=== PATIENT | male | born 1970 | race Caucasian/White ===

== ENCOUNTER 2025-01-13 12:51 | Emergency (ER) | payer OTHER, SELFPAY ==
[2025-01-13 12:52] VITALS: BP 171/95; PULSE 86; RESP 18; TEMP 36.5; O2SAT 99
--- OUTSIDE RECORDS SUMMARY | 2025-01-13 13:47 | XMS_ITS | Data Portability ---
Author Organization [facility]EL[facility] Address [address] [place] [address] Assessment No assessment recorded. Plan of Treatment Reminders Order Date Submit Date Provider Last Modified By Organization Details Last Modified Time Details Appointments None recorded. Lab PSA, total, serum or plasma 2017 019 [facility], [address], [address], [place], [address], 9 03:10:05 HbA1c (hemoglobi n A1c), blood 2017 019 [facility], [address] [facility] [address], [place], [address], 9 03:10:06 thyroid panel, serum 2017 018 [facility], [address] [facility] [address], [address], [place], [address], 8 09:19:35 HbA1c (hemoglobi n A1c), blood 2017 018 [facility], [address] [facility] [address], [address], [place], [address], 8 13:11:50 lipid panel, serum 2017 018 [facility], [address] [facility] [address], [address], [place], [address], 8 13:11:50 influenza virus (A+B) Ag, rapid, nose 2017 018 [facility] ([facility]), [address], [place], [address], 8 14:48:53 CBC 2017 018 [facility], [address] [facility] [address], [place], [address], 8 17:11:21 urinalysis , complete 2017 018 [facility], [address] [place] [address] [address], [address], [place], [address], 8 17:11:22 rapid strep group A, throat 2017 018 [facility] In-Office Order, Internal Use Only DO Not Attach Compendium DO Not Attach Compendium, Do Not Delete/merge, [address] 8 12:13:44 culture, respirator y 2017 018 [facility], [address] [facility] [address], [place], [address], 8 17:08:09 HbA1c (hemoglobi n A1c), blood 2017 018 [facility], [address] [facility] [address], [place], [address], 8 17:11:24 lipid panel, serum 2017 018 [facility], [address], [place], [address], 8 17:11:23 BMP, serum or plasma 2017 018 [facility], [address], [place], [address], 8 17:11:23 HbA1c (hemoglobi n A1c), blood 2016 018 [facility], [address], [address], [place], [address], 8 06:17:37 lipid panel, serum 2016 018 [facility], [address], [address], [place], [address], 8 06:17:35 BMP, serum or plasma 2016 018 [facility], [address], [address], [place], [address], 8 06:17:36 uric acid, serum or plasma 2016 017 [facility], [address], [address], [place], [address], 7 13:10:24 microalbum in, urine 2016 017 [facility], [address], [address], [place], [address], 7 13:10:23 lipid panel, serum 2016 017 [facility], [address], [address], [place], [address], 7 13:10:23 ALT (alanine aminotrans ferase), serum or plasma 2016 017 [facility], [address], [address], [place], [address], 7 13:10:25 AST/SGOT (aspartate aminotrans ferase), serum or plasma 2016 017 [facility], [address] [facility] [address], [place], [address], 7 13:10:24 Referral diabetic ophthalmol ogy referral - Please call patient to schedule appt. Thank you 2016 017 [facility], [address], [place], [address], 7 13:05:22 Procedures None recorded. Surgeries None recorded. Imaging US, liver - Elevtaed Transamina se 2016 017 [facility] ([facility]), [address], [place], [address], 8 14:08:10 Medication Orders metformin ER 500 mg tablet,ext ended release 24 hr 2017 018 [facility] #[id number], [address], [place], [place], [id number], 8 15:54:07 Amaryl 1 mg tablet 2017 018 [facility] #[id number], [address], [place], [place], [id number], 8 15:54:07 atorvastat in 40 mg tablet 2017 018 [facility] #[id number], [address], [place], [place], [id number], 8 15:54:07 metformin ER 500 mg tablet,ext ended release 24 hr 2017 018 [facility] #[id number], [address], [place], [place], [id number], 8 12:21:13 atorvastat in 40 mg tablet 2017 018 [facility] #[id number], [address], [place], [place], [id number], 8 12:21:15 atorvastat in 40 mg tablet 2017 018 [facility] #[id number], [address], [place], [place], [id number], 8 12:18:24 metformin ER 500 mg tablet,ext ended release 24 hr 2017 018 [facility] #[id number], [address], [id number], 8 12:18:28 pseudoephe drine 60 mg tablet 2017 018 [facility] #[id number], [address], [place], [place], [id number], 8 12:14:30 metformin ER 500 mg tablet,ext ended release 24 hr 2016 017 [facility] #[id number], [address], [place], [place], [id number], 7 12:42:05 atorvastat in 40 mg tablet 2016 017 [facility] #[id number], [address], [place], [place], [id number], 7 12:48:59 metformin 1,000 mg tablet 2016 017 [facility] #[id number], [address], [place], [place], [id number], 8 12:08:28 atorvastat in 40 mg tablet 2016 017 [id number], [address], [place], [place], [id number], 7 10:08:43 Patient TargetsNo targets recorded. Patient Instructions Encounter Date Encounter Id Patient Instructions Last Modified By Organization Details Last Modified Time 07/19/2017 [id number] osteoarthritis: care instructions hdoverma Not available 07/19/2017 10:22:31 Patient educatio n materials Labs in 6 weeks Diabetic, low CHO and low saturated fat diet Exercise Weight loss FU in 2 months US Side effects of Metformin and Lipitor were discussed Once a day blood sugar testing oajao Not available 07/19/2017 10:20:41 Detailed discussion of his lab and radiology results oajao Not available 07/19/2017 10:20:01 09/16/2017 [id number] Metformin XR 100 0 mg once a day Labs FOllow up in 4 months oajao Not available 09/16/2017 13:54:08 Lab and xray results were discussed in detail. oajao Not available 09/16/2017 13:54:38 12/23/2017 [id number] A healthy lifestyle: care instructions oajao Not available 12/23/2017 12:13:44 sore throat: car e instructions oajao Not available 12/23/2017 12:13:44 upper respirator y infection (cold): care instructions oajao Not available 12/23/2017 12:13:44 ER if symptoms worsen Labs Pseudophedrine Follow up as scheduled oajao Not available 12/23/2017 20:18:06 the negative rap id Strep and his other lab results were discussed oajao Not available 12/23/2017 20:19:39 04/14/2018 [id number] TSH today Pneumovax was refused Labs in 3-4 months FU in 4-5 months oajao Not available 04/14/2018 12:33:19 Lab results were discussed. A neeed to add on another medication or increase the dose of his Metformin was discussed, he has declined the offer. He is aware that his DM is uncontrolled albeit, better than last year. He had confirmed Influenza on his last visit, I have strongly recommended that he gets his annual Flu shots when it's due. oajao Not available 04/14/2018 12:35:11 10/12/2018 [id number] Labs Colonoscopy Increase Metformin to 2000 mg, side effects were discussed Start Amaryl, side effects were discussed Close follow up in 8 weeks Colonoscopy sohan Not available 10/12/2018 19:19:30 Lab results were discused in detail oanichelleo Not available 10/12/2018 15:58:28 Reason for Referral Diabetic Ophthalmology Refer ral for Uncontrolled type 2 diabetes mellitus Please call patient to schedule appt. Thank you Referring Physician: Nichole Munguia, Internal Medicine, Encounter Date: 07/19/2017 Results Created Date Observation Date Name Description Value Unit Range Abnormal Flag Note LastModifiedBy Organization Detail LastModifiedTime 07/13/20 17 07/14/2017 CBC WBC 7.0 x10e3 /uL 3.4-10 .8 Not Available [facility] ([facility]) [address] [place], [address], 07/14/2017 13:11:04 07/13/2007/14/2017 CBC RBC 5.76 x10e6 /uL 4.14-5 .80 Not Available [facility] ([facility]) [address] [place], [address], 07/14/2017 13:11:04 07/13/2007/14/2017 CBC hemoglobin 17.3 g/dL 12.6-1 7.7 Not Available [facility] ([facility]) [address] [place], [address], 07/14/2017 13:11:04 07/13/2007/14/2017 CBC hematocrit 49.9 % 37.5-5 1.0 Not Available [facility] ([facility]) [address] [place], [address], 07/14/2017 13:11:04 07/13/2007/14/2017 CBC MCV 87 fL 79-97 Not Available [facility] ([facility]) [address] [place], [address], 07/14/2017 13:11:04 07/13/20 17 07/14/2017 CBC MCH 30.0 pg 26.6-3 3.0 Not Available [facility] ([facility]) [address] [place], [address], 07/14/2017 13:11:04 07/13/20 17 07/14/2017 CBC MCHC 34.7 g/dL 31.5-3 5.7 Not Available [facility] ([facility]) [address] [facility], [place], [address], 07/14/2017 13:11:04 07/13/20 17 07/14/2017 CBC RDW 14.1 % 12.3-1 5.4 Not Available [facility] ([facility]) [address] [facility], [place], [address], 07/14/2017 13:11:04 07/13/20 17 07/14/2017 CBC platelets 234 x10e3 /uL 150-37 9 Not Available [facility] ([facility]) [address] [facility], [place], [address], 07/14/2017 13:11:04 07/13/2007/14/2017 CBC neutrophils 49 % Not Avai lable [facility] ([facility]) [address] [place], [address], 07/14/2017 13:11:04 07/13/2007/14/2017 CBC lymphs 41 % Not Available [facility] ([facility]) [address] [place], [address], 07/14/2017 13:11:04 07/13/2007/14/2017 CBC monocytes 7 % Not Availa ble [facility] ([facility]) [address] [place], [address], 07/14/2017 13:11:04 07/13/20 17 07/14/2017 CBC eos 3 % Not Available [facility] ([facility]) [address] [facility], [place], [address], 07/14/2017 13:11:04 07/13/20 17 07/14/2017 CBC basos 0 % Not Available [facility] ([facility]) [address] [facility], [place], [address], 07/14/2017 13:11:04 07/13/2007/14/2017 CBC immature cells SENIOR WEB ARCHITECT Not Available [facility] ([facility]) [address] [facility], [place], [address], 07/14/2017 13:11:04 07/13/2007/14/2017 CBC neutrophils (absolute) 3.4 x10e3 /uL 1.4-7. 0 Not Available [facility] ([facility]) [address] [facility], [place], [address], 07/14/2017 13:11:04 07/13/20 17 07/14/2017 CBC lymphs (absolute) 2.9 x10e3 /uL 0.7-3. 1 Not Available [facility] ([facility]) [address] [facility], [place], [address], 07/14/2017 13:11:04 07/13/20 17 07/14/2017 CBC monocytes(ab solute) 0.5 x10e3 /uL 0.1-0. 9 Not Available [facility] ([facility]) [address] [facility], [place], [address], 07/14/2017 13:11:04 07/13/2007/14/2017 CBC eos (absolute) 0.2 x10e3 /uL 0.0-0. 4 Not Available [facility] ([facility]) [address] [facility], [place], [address], 07/14/2017 13:11:04 07/13/20 17 07/14/2017 CBC baso (absolute) 0.0 x10e3 /uL 0.0-0. 2 Not Available [facility] ([facility]) [address] [facility] [place], [address], 07/14/2017 13:11:04 07/13/2007/14/2017 CBC immature granulocytes 0 % Not Available [facility]) [address] [place], [address], 07/14/2017 13:11:04 07/13/2007/14/2017 CBC immature grans (abs) 0.0 x10e3 /uL 0.0-0. 1 Not Available [facility] ([facility]) [address] [facility] [place], [address], 07/14/2017 13:11:04 07/13/2007/14/2017 CBC NRBC SENIOR WEB ARCHITECT Not Available [facility] ([facility]) [address] [facility] [place], [address], 07/14/2017 13:11:04 07/13/2007/14/2017 CBC hematology comments: SENIOR WEB ARCHITECT Not Available [facility] ([facility]) [address] [facility] [place], [address], 07/14/2017 13:11:04 07/13/2007/14/2017 CMP, serum or plasm a glucose, serum 353 mg/dL 65-99 above high normal Not Available [facility] ([facility]) [address] [facility] [place], [address], 07/14/2017 13:11:05 07/13/2007/14/2017 CMP, serum or plasm a BUN 11 mg/dL 6-24 Not Available [facility] ([facility]) [address] [facility] [place], [address], 07/14/2017 13:11:05 07/13/2007/14/2017 CMP, serum or plasm a creatinine, serum 0.77 mg/dL 0.76-1 .27 Not Available [facility] ([facility]) [address] [place], [address], 07/14/2017 13:11:05 07/13/20 17 07/14/2017 CMP, serum or plasm a eGFR if nonafricn AM 107 mL/mi n/1.7 3 >59 Not Available [facility] ([facility]) [address] [facility] [place], [address], 07/14/2017 13:11:05 07/13/20 17 07/14/2017 CMP, serum or plasm a eGFR if africn AM 123 mL/mi n/1.7 3 >59 Not Available [facility] ([facility]) [address] [place], [address], 07/14/2017 13:11:05 07/13/20 17 07/14/2017 CMP, serum or plasm a BUN/creatini ne ratio 14 9-20 Not Available [facility] ([facility]) [address] [place], [address], 07/14/2017 13:11:05 07/13/20 17 07/14/2017 CMP, serum or plasm a sodium, serum 141 mmol/ L 134-14 4 Not Available [facility] ([facility]) [address] [place] [address], [address], 07/14/2017 13:11:05 07/13/20 17 07/14/2017 CMP, serum or plasm a potassium, serum 4.5 mmol/ L 3.5-5. 2 Not Available [facility] ([facility]) [address] [place], [address], 07/14/2017 13:11:05 07/13/20 17 07/14/2017 CMP, serum or plasm a chloride, serum 95 mmol/ L 96-106 below low normal Not Available [facility] ([facility]) [address] [place], [address], 07/14/2017 13:11:05 07/13/20 17 07/14/2017 CMP, serum or plasm a carbon dioxide, total 23 mmol/ L 18-29 Not Available [facility] ([facility]) [address] [facility] [place], [address], 07/14/2017 13:11:05 07/13/2007/14/2017 CMP, serum or plasm a calcium, serum 9.8 mg/dL 8.7-10 .2 Not Available [facility] ([facility]) [address] [facility] [place], [address], 07/14/2017 13:11:05 07/13/2007/14/2017 CMP, serum or plasm a protein, total, serum 7.3 g/dL 6.0-8. 5 Not Available [facility] ([facility]) [address] [place], [address], 07/14/2017 13:11:05 07/13/2007/14/2017 CMP, serum or plasm a albumin, serum 4.3 g/dL 3.5-5. 5 Not Available [facility] ([facility]) [address] [facility] [place], [address], 07/14/2017 13:11:05 07/13/2007/14/2017 CMP, serum or plasm a globulin, total 3.0 g/dL 1.5-4. 5 Not Available [facility] ([facility]) [address] [place], [address], 07/14/2017 13:11:05 07/13/2007/14/2017 CMP, serum or plasm a A/G ratio 1.4 1.2-2. 2 Not Available [facility] ([facility]) [address] [place], [address], 07/14/2017 13:11:05 07/13/2007/14/2017 CMP, serum or plasm a bilirubin, total 0.6 mg/dL 0.0-1. 2 Not Available [facility] ([facility]) [address] [place], [address], 07/14/2017 13:11:05 07/13/20 17 07/14/2017 CMP, serum or plasm a alkaline phosphatase, S 103 IU/L 39-117 Not Available [facility] ([facility]) [address] [facility] [place], [address], 07/14/2017 13:11:05 07/13/2007/14/2017 CMP, serum or plasm a AST (SGOT) 25 IU/L 0-40 Not Available [facility] ([facility]) [address] [facility] [place], [address], 07/14/2017 13:11:05 07/13/2007/14/2017 CMP, serum or plasm a ALT (SGPT) 54 IU/L 0-44 above high normal Not Available [facility] ([facility]) [address] [place], [address], 07/14/2017 13:11:05 07/13/2007/14/2017 urina lysis , compl ete specific gravity >=1.03 0 1.005- 1.030 abnormal Not Available [facility] ([facility]) [address] [place], [address], 07/14/2017 13:11:05 07/13/20 17 07/14/2017 urina lysis , compl ete pH 5.5 5.0-7. 5 Not Available [facility] ([facility]) [address] [place], [address], 07/14/2017 13:11:05 07/13/2007/14/2017 urina lysis , compl ete urine-color YELLOW yellow Not Available [facility] ([facility]) [address] [place], [address], 07/14/2017 13:11:05 07/13/20 17 07/14/2017 urina lysis , compl ete appearance CLEAR clear Not Available [facility] ([facility]) [address] [facility], [place], [address], 07/14/2017 13:11:05 07/13/20 17 07/14/2017 urina lysis , compl ete WBC esterase NEGATI VE negati ve Not Available [facility] ([facility]) [address] [facility], [place], [address], 07/14/2017 13:11:05 07/13/2007/14/2017 urina lysis , compl ete protein NEGATI VE negati ve/tra ce Not Available [facility] ([facility]) [address] [place], [address], 07/14/2017 13:11:05 07/13/2007/14/2017 urina lysis , compl ete glucose 3+ negati ve abnormal Not Available [facility] ([facility]) [address] [place], [address], 07/14/2017 13:11:05 07/13/2007/14/2017 urina lysis , compl ete ketones TRACE negati ve abnormal Not Available [facility] ([facility]) [address] [place], [address], 07/14/2017 13:11:05 07/13/20 17 07/14/2017 urina lysis , compl ete occult blood NEGATI VE negati ve Not Available [facility] ([facility]) [address] [place], [address], 07/14/2017 13:11:05 07/13/2007/14/2017 urina lysis , compl ete bilirubin NEGATI VE negati ve Not Available [facility] ([facility]) [address] [place], [address], 07/14/2017 13:11:05 07/13/20 17 07/14/2017 urina lysis , compl ete urobilinogen ,semi-qn 0.2 mg/dL 0.2-1. 0 Not Available [facility] ([facility]) [address] [facility], [place], [address], 07/14/2017 13:11:05 07/13/20 17 07/14/2017 urina lysis , compl ete nitrite, urine NEGATI VE negati ve Not Available [facility] ([facility]) [address] [place], [address], 07/14/2017 13:11:05 07/13/20 17 07/14/2017 urina lysis , compl ete microscopic examination COMMEN T Micro scopi c not indic ated and not perfo rmed. Not Available [facility] ([facility]) [address] [place], [address], 07/14/2017 13:11:05 07/13/20 17 07/14/2017 lipid panel , serum cholesterol, total 289 mg/dL 100-19 9 above high normal Not Available [facility] ([facility]) [address] [place], [address], 07/14/2017 13:11:05 07/13/2007/14/2017 lipid panel , serum triglyceride s 1546 mg/dL 0-149 alert high Resul ts confi rmed on dilut ion. Not Available [facility] ([facility]) [address] [place], [address], 07/14/2017 13:11:05 07/13/20 17 07/14/2017 lipid panel , serum HDL cholesterol 18 mg/dL >39 below low normal Not Available [facility] ([facility]) [address] [place], [address], 07/14/2017 13:11:05 07/13/2007/14/2017 lipid panel , serum VLDL cholesterol eileen COMMEN T mg/dL 5-40 The calcu latio n for the VLDL mckenna stero l is not valid when trigl yceri de level is >400 mg/dL . Not Available [facility] ([facility]) [address] [place], [address], 07/14/2017 13:11:05 07/13/2007/14/2017 lipid panel , serum LDL cholesterol calc COMMEN T mg/dL 0-99 Trigl yceri de resul t indic ated is too high for an accur ate LDL mckenna stero l estim ation . Not Available [facility] ([facility]) [address] [facility], [place], [address], 07/14/2017 13:11:05 07/13/2007/14/2017 lipid panel , serum comment: SENIOR WEB ARCHITECT Not Available [facility] ([facility]) [address] [facility], [place], [address], 07/14/2017 13:11:05 07/13/2007/14/2017 lipid panel , serum LDL/HDL ratio TNP ratio _unit s Unabl e to calcu late resul t since non-n umeri c resul t obtai andrew for compo nent test. LDL/H DL Ratio Men Women 1/2 Avg.R isk 1.0 1.5 Avg.R isk 3.6 3.2 2X Avg.R isk 6.2 5.0 3X Avg.R isk 8.0 6.1 Not Available [facility] ([facility]) [address] [facility], [place], [address], 07/14/2017 13:11:05 07/13/2007/14/2017 diabe alexx patie nt educa tion pdf image . Not Available [facility] ([facility]) [address] [facility], [place], [address], 07/14/2017 13:11:06 07/13/2007/14/2017 HbA1c (hemo globi n A1c), blood hemoglobin A1C 13.4 % 4.8-5. 6 above high normal Pre-d iabet es: 5.7 - 6.4 Diabe alexx: >6.4 Glyce brett contr ol for adult s with diabe alexx: <7.0 Not Available [facility] ([facility]) [address] [facility], [place], [address], 07/14/2017 13:11:06 07/13/20 17 07/14/2017 rf (rheu matoi d facto r), serum RA latex turbid. <10.0 IU/mL 0.0-13 .9 Not Available [facility] ([facility]) [address] [facility], [place], [address], 07/14/2017 13:11:06 07/13/20 17 07/14/2017 HIV 1+2 AB + HIV 1 p24 Ag, quali tativ e immun oassa y, serum HIV screen 4TH generation wrfx NON REACTI VE non reacti ve Not Available [facility] ([facility]) [address] [facility], [place], [address], 07/14/2017 13:11:06 07/13/20 17 07/13/2017 hepat itis C Ab, signa l-to- cutof f, serum or plasm a comment: COMMEN T Non react jd HCV antib alejandrina scree n is consi stent with no HCV infec tion, unles s recen t infec tion is suspe cted or other evide nce exist s to indic ate HCV infec tion. Not Available [facility] ([facility]) [address] [facility], [place], [address], 07/14/2017 13:11:07 07/13/20 17 07/14/2017 hepat itis C Ab, signa l-to- cutof f, serum or plasm a HCV Ab <0.1 s/co_ ratio 0.0-0. 9 Not Available [facility] ([facility]) [address] [facility], [place], [address], 07/14/2017 13:11:07 07/13/20 17 07/14/2017 uric acid, serum or plasm a uric acid, serum 5.0 mg/dL 3.7-8. 6 Thera blas garvin t for gout patie nts: <6.0 Not Available [facility] ([facility]) [address] [facility], [place], [address], 07/14/2017 13:11:07 08/31/20 17 09/01/2017 lipid panel , serum cholesterol, total 105 mg/dL 100-19 9 Not Available [facility] ([facility]) [address] [facility], [place], [address], 09/01/2017 13:10:23 08/31/20 17 09/01/2017 lipid panel , serum triglyceride s 101 mg/dL 0-149 Not Available [facility] ([facility]) [address] [facility], [place], [address], 09/01/2017 13:10:23 08/31/20 17 09/01/2017 lipid panel , serum HDL cholesterol 32 mg/dL >39 below low normal Not Available [facility] ([facility]) [address] [facility], [place], [address], 09/01/2017 13:10:23 08/31/20 17 09/01/2017 lipid panel , serum VLDL cholesterol eileen 20 mg/dL 5-40 Not Available [facility] ([facility]) [address] [facility], [place], [address], 09/01/2017 13:10:23 08/31/20 17 09/01/2017 lipid panel , serum LDL cholesterol calc 53 mg/dL 0-99 Not Available [facility] ([facility]) [address] [facility], [place], [address], 09/01/2017 13:10:23 08/31/20 17 09/01/2017 lipid panel , serum comment: SENIOR WEB ARCHITECT Not Available [facility] ([facility]) [address] [facility], [place], [address], 09/01/2017 13:10:23 08/31/20 17 09/01/2017 lipid panel , serum LDL/HDL ratio 1.7 ratio _unit s 0.0-3. 6 LDL/H DL Ratio Men Women 1/2 Avg.R isk 1.0 1.5 Avg.R isk 3.6 3.2 2X Avg.R isk 6.2 5.0 3X Avg.R isk 8.0 6.1 Not Available [facility] ([facility]) [address] [place], [address], 09/01/2017 13:10:23 08/31/20 17 09/01/2017 micro album in, urine microalbumin , urine 17.0 ug/mL not estab. Not Available [facility] ([facility]) [address] [place], [address], 09/01/2017 13:10:23 08/31/20 17 09/01/2017 uric acid, serum or plasm a uric acid, serum 4.7 mg/dL 3.7-8. 6 Thera pedilipi c bharathi t for gout patie nts: <6.0 Not Available [facility] ([facility]) [address] [place], [address], 09/01/2017 13:10:24 08/31/20 17 09/01/2017 AST/S GOT (aspa rtate amino trans feras e), serum or plasm a AST (SGOT) 23 IU/L 0-40 Not Available [facility] ([facility]) [address] [place], [address], 09/01/2017 13:10:24 08/31/20 17 09/01/2017 ALT (rina ine amino trans feras e), serum or plasm a ALT (SGPT) 36 IU/L 0-44 Not Available [facility] ([facility]) [address] [place], [address], 09/01/2017 13:10:25 08/31/20 17 09/01/2017 diabe alexx patie nt educa tion pdf image . Not Available [facility] ([facility]) [address] [place], [address], 09/01/2017 13:10:25 12/22/19 18 12/23/2017 lipid panel , serum cholesterol, total 94 mg/dL 100-19 9 below low normal Not Available [facility] ([facility]) [address] [place], [address], 12/23/2017 06:17:35 12/22/19 18 12/23/2017 lipid panel , serum triglyceride s 128 mg/dL 0-149 Not Available [facility] ([facility]) [address] [place], [address], 12/23/2017 06:17:35 12/22/19 18 12/23/2017 lipid panel , serum HDL cholesterol 26 mg/dL >39 below low normal Not Available [facility] ([facility]) [address] [place], [address], 12/23/2017 06:17:35 12/22/19 18 12/23/2017 lipid panel , serum VLDL cholesterol eileen 26 5-40 Not Available [facility] ([facility]) [address] [place], [address], 12/23/2017 06:17:35 12/22/19 18 12/23/2017 lipid panel , serum LDL cholesterol calc 42 0-99 Not Available [facility] ([facility]) [address] [place], [address], 12/23/2017 06:17:35 12/22/19 18 12/23/2017 lipid panel , serum comment: SENIOR WEB ARCHITECT Not Available [facility] ([facility]) [address] [place], [address], 12/23/2017 06:17:35 12/22/19 18 12/23/2017 lipid panel , serum LDL/HDL ratio 1.6 0.0-3. 6 LDL/H DL Ratio Men Women 1/2 Avg.R isk 1.0 1.5 Avg.R isk 3.6 3.2 2X Avg.R isk 6.2 5.0 3X Avg.R isk 8.0 6.1 Not Available [facility] ([facility]) [address] [place] [place], [address], 12/23/2017 06:17:35 12/22/19 18 12/23/2017 BMP, serum or plasm a glucose, serum 136 mg/dL 65-99 above high normal Not Available [facility] ([facility]) [address] [place] [place], [address], 12/23/2017 06:17:36 12/22/19 18 12/23/2017 BMP, serum or plasm a BUN 15 mg/dL 6-24 Not Available [facility] ([facility]) [address] [place] [place], [address], 12/23/2017 06:17:36 12/22/19 18 12/23/2017 BMP, serum or plasm a creatinine, serum 0.81 mg/dL 0.76-1 .27 Not Available [facility] ([facility]) [address] [place] [place], [address], 12/23/2017 06:17:36 12/22/19 18 12/23/2017 BMP, serum or plasm a eGFR if nonafricn AM 104 >59 Not Available [facility] ([facility]) [address] [facility] [place], [address], 12/23/2017 06:17:36 12/22/19 18 12/23/2017 BMP, serum or plasm a eGFR if africn AM 121 >59 Not Available [facility] ([facility]) [address] [facility] [place], [address], 12/23/2017 06:17:36 12/22/19 18 12/23/2017 BMP, serum or plasm a BUN/creatini ne ratio 19 9-20 Not Available [facility] ([facility]) [address] [facility] [place], [address], 12/23/2017 06:17:36 12/22/19 18 12/23/2017 BMP, serum or plasm a sodium, serum 143 mmol/ L 134-14 4 Not Available [facility] ([facility]) [address] [facility] [place], [address], 12/23/2017 06:17:36 12/22/19 18 12/23/2017 BMP, serum or plasm a potassium, serum 4.3 mmol/ L 3.5-5. 2 Not Available [facility] ([facility]) [address] [facility] [place], [address], 12/23/2017 06:17:36 12/22/19 18 12/23/2017 BMP, serum or plasm a chloride, serum 101 mmol/ L 96-106 Not Available [facility] ([facility]) [address] [place], [address], 12/23/2017 06:17:36 12/22/19 18 12/23/2017 BMP, serum or plasm a carbon dioxide, total 25 mmol/ L 18-29 Not Available [facility] ([facility]) [address] [place] [place], [address], 12/23/2017 06:17:36 12/22/19 18 12/23/2017 BMP, serum or plasm a anion gap 17.0 10.0-1 8.0 Not Available [facility] ([facility]) [address] [place], [address], 12/23/2017 06:17:36 12/22/19 18 12/23/2017 HbA1c (hemo globi n A1c), blood hemoglobin A1C 7.6 % 4.8-5. 6 above high normal Pre-d iabet es: 5.7 - 6.4 Diabe alexx: >6.4 Glyce brett contr ol for adult s with diabe alexx: <7.0 Not Available [facility] ([facility]) [address] [place], [address], 12/23/2017 06:17:37 02/21/20 18 12/23/2017 diabe alexx patie nt educa tion pdf image . Not Available [facility] ([facility]) [address] [facility] [place], [address], 12/23/2017 06:17:37 12/23/19 18 12/25/2017 cultu re, respi rator y upper respiratory culture FINAL REPORT Not Available [facility] ([facility]) [address] [place] [place], [address], 12/25/2017 17:08:09 12/23/19 18 12/25/2017 cultu re, respi rator y result 1 COMMEN T Routi ne respi rator y vega Not Available [facility] ([facility]) [address] [facility], [place], [address], 12/25/2017 17:08:09 12/23/19 18 12/23/2017 rapid strep group A, throa t Strep negati ve Not Available In-Office Order Internal Use Only DO Not Attach Compendium DO Not Attach Compendium, Do Not Delete/merge, [id number] 12/23/2017 12:06:14 04/06/20 18 04/06/2018 CBC w/ auto diff WBC 7.2 x10e3 /uL 3.4-10 .8 Not Available [facility] ([facility]) [address] [facility] [place], [address], 04/07/2018 17:11:21 04/06/20 18 04/06/2018 CBC w/ auto diff RBC 5.31 x10e6 /uL 4.14-5 .80 Not Available [facility] ([facility]) [address] [facility] [place], [address], 04/07/2018 17:11:21 04/06/20 18 04/06/2018 CBC w/ auto diff hemoglobin 15.4 g/dL 13.0-1 7.7 Not Available [facility] ([facility]) [address] [place] [place], [address], 04/07/2018 17:11:21 04/06/20 18 04/06/2018 CBC w/ auto diff hematocrit 45.7 % 37.5-5 1.0 Not Available [facility] ([facility]) [address] [facility], [place], [address], 04/07/2018 17:11:21 04/06/20 18 04/06/2018 CBC w/ auto diff MCV 86 fL 79-97 Not Available [facility] ([facility]) [address] [facility], [place], [address], 04/07/2018 17:11:21 04/06/20 18 04/06/2018 CBC w/ auto diff MCH 29.0 pg 26.6-3 3.0 Not Available [facility] ([facility]) [address] [facility], [place], [address], 04/07/2018 17:11:21 04/06/20 18 04/06/2018 CBC w/ auto diff MCHC 33.7 g/dL 31.5-3 5.7 Not Available [facility] ([facility]) [address] [facility], [place], [address], 04/07/2018 17:11:21 04/06/20 18 04/06/2018 CBC w/ auto diff RDW 14.1 % 12.3-1 5.4 Not Available [facility] ([facility]) [address] [facility], [place], [address], 04/07/2018 17:11:21 04/06/20 18 04/06/2018 CBC w/ auto diff platelets 266 x10e3 /uL 150-37 9 Not Available [facility] ([facility]) [address] [facility] [place], [address], 04/07/2018 17:11:21 04/06/20 18 04/06/2018 CBC w/ auto diff neutrophils 52 % not estab. Not Available [facility] ([facility]) [address] [facility], [place], [address], 04/07/2018 17:11:21 04/06/20 18 04/06/2018 CBC w/ auto diff lymphs 38 % not estab. Not Available [facility] ([facility]) [address] [facility], [place], [address], 04/07/2018 17:11:21 04/06/20 18 04/06/2018 CBC w/ auto diff monocytes 7 % not estab. Not Available [facility] ([facility]) [address] [facility], [place], [address], 04/07/2018 17:11:21 04/06/20 18 04/06/2018 CBC w/ auto diff eos 3 % not estab. Not Available [facility] ([facility]) [address] [facility], [place], [address], 04/07/2018 17:11:21 04/06/20 18 04/06/2018 CBC w/ auto diff basos 0 % not estab. Not Available [facility] ([facility]) [address] [facility], [place], [address], 04/07/2018 17:11:21 04/06/20 18 04/06/2018 CBC w/ auto diff immature cells SENIOR WEB ARCHITECT Not Available [facility] ([facility]) [address] [facility], [place], [address], 04/07/2018 17:11:21 04/06/20 18 04/06/2018 CBC w/ auto diff neutrophils (absolute) 3.7 x10e3 /uL 1.4-7. 0 Not Available [facility] ([facility]) [address] [place], [address], 04/07/2018 17:11:21 04/06/20 18 04/06/2018 CBC w/ auto diff lymphs (absolute) 2.7 x10e3 /uL 0.7-3. 1 Not Available [facility] ([facility]) [address] [place], [address], 04/07/2018 17:11:21 04/06/20 18 04/06/2018 CBC w/ auto diff monocytes(ab solute) 0.5 x10e3 /uL 0.1-0. 9 Not Available [facility] ([facility]) [address] [facility], [place], [address], 04/07/2018 17:11:21 04/06/20 18 04/06/2018 CBC w/ auto diff eos (absolute) 0.2 x10e3 /uL 0.0-0. 4 Not Available [facility] ([facility]) [address] [facility], [place], [address], 04/07/2018 17:11:21 04/06/20 18 04/06/2018 CBC w/ auto diff baso (absolute) 0.0 x10e3 /uL 0.0-0. 2 Not Available [facility] ([facility]) [address] [place], [address], 04/07/2018 17:11:21 04/06/20 18 04/06/2018 CBC w/ auto diff immature granulocytes 0 % not estab. Not Available [facility] ([facility]) [address] [facility], [place], [address], 04/07/2018 17:11:21 04/06/20 18 04/06/2018 CBC w/ auto diff immature grans (abs) 0.0 x10e3 /uL 0.0-0. 1 Not Available [facility] ([facility]) [address] [facility], [place], [address], 04/07/2018 17:11:21 04/06/20 18 04/06/2018 CBC w/ auto diff NRBC SENIOR WEB ARCHITECT Not Available [facility] ([facility]) Formerly [facility], [facility] [facility] [place], [address], 04/07/2018 17:11:21 04/06/20 18 04/06/2018 CBC w/ auto diff hematology comments: SENIOR WEB ARCHITECT Not Available [facility] ([facility]) [address] [facility], [place], [address], 04/07/2018 17:11:21 04/06/20 18 04/07/2018 urina lysis , compl ete specific gravity 1.022 1.005- 1.030 Not Available [facility] ([facility]) [address] [facility] [place], [address], 04/07/2018 17:11:22 04/06/20 18 04/07/2018 urina lysis , compl ete pH 5.0 5.0-7. 5 Not Available [facility] ([facility]) [address] [place], [address], 04/07/2018 17:11:22 04/06/20 18 04/07/2018 urina lysis , compl ete urine-color YELLOW yellow Not Available [facility] ([facility]) [address] [place], [address], 04/07/2018 17:11:22 04/06/20 18 04/07/2018 urina lysis , compl ete appearance CLEAR clear Not Available [facility] ([facility]) [address] [place], [address], 04/07/2018 17:11:22 04/06/20 18 04/07/2018 urina lysis , compl ete WBC esterase NEGATI VE negati ve Not Available [facility] ([facility]) [address] [place], [address], 04/07/2018 17:11:22 04/06/20 18 04/07/2018 urina lysis , compl ete protein NEGATI VE negati ve/tra ce Not Available [facility] ([facility]) [address] [place], [address], 04/07/2018 17:11:22 04/06/20 18 04/07/2018 urina lysis , compl ete glucose NEGATI VE negati ve Not Available [facility] ([facility]) [address] [facility], [place], [address], 04/07/2018 17:11:22 04/06/20 18 04/07/2018 urina lysis , compl ete ketones NEGATI VE negati ve Not Available [facility] ([facility]) [address] [facility], [place], [address], 04/07/2018 17:11:22 04/06/20 18 04/07/2018 urina lysis , compl ete occult blood NEGATI VE negati ve Not Available [facility] ([facility]) [address] [place], [address], 04/07/2018 17:11:22 04/06/20 18 04/07/2018 urina lysis , compl ete bilirubin NEGATI VE negati ve Not Available [facility] ([facility]) [address] [place], [address], 04/07/2018 17:11:22 04/06/20 18 04/07/2018 urina lysis , compl ete urobilinogen ,semi-qn 0.2 mg/dL 0.2-1. 0 Not Available [facility] ([facility]) [address] [facility], [place], [address], 04/07/2018 17:11:22 04/06/20 18 04/07/2018 urina lysis , compl ete nitrite, urine NEGATI VE negati ve Not Available [facility] ([facility]) [address] [place], [address], 04/07/2018 17:11:22 04/06/20 18 04/07/2018 urina lysis , compl ete microscopic examination COMMEN T Micro scopi c not indic ated and not perfo rmed. Not Available [facility] ([facility]) [address] [place], [address], 04/07/2018 17:11:22 04/06/20 18 04/07/2018 BMP, serum or plasm a glucose 148 mg/dL 65-99 above high normal Not Available [facility] ([facility]) [address] [place], [address], 04/07/2018 17:11:23 04/06/20 18 04/07/2018 BMP, serum or plasm a BUN 15 mg/dL 6-24 Not Available [facility] ([facility]) [address] [place], [address], 04/07/2018 17:11:23 04/06/20 18 04/07/2018 BMP, serum or plasm a creatinine 0.81 mg/dL 0.76-1 .27 Not Available [facility] ([facility]) [address] [place], [address], 04/07/2018 17:11:23 04/06/20 18 04/07/2018 BMP, serum or plasm a eGFR if nonafricn AM 104 mL/mi n/1.7 3 >59 Not Available [facility] ([facility]) [address] [place], [address], 04/07/2018 17:11:23 04/06/20 18 04/07/2018 BMP, serum or plasm a eGFR if africn AM 121 mL/mi n/1.7 3 >59 Not Available [facility] ([facility]) [address] [place], [address], 04/07/2018 17:11:23 04/06/20 18 04/07/2018 BMP, serum or plasm a BUN/creatini ne ratio 19 9-20 Not Available [facility] ([facility]) [address] [place], [address], 04/07/2018 17:11:23 04/06/20 18 04/07/2018 BMP, serum or plasm a sodium 144 mmol/ L 134-14 4 Not Available [facility] ([facility]) [address] [place], [address], 04/07/2018 17:11:23 04/06/20 18 04/07/2018 BMP, serum or plasm a potassium 4.7 mmol/ L 3.5-5. 2 Not Available [facility] ([facility]) [address] [place], [address], 04/07/2018 17:11:23 04/06/20 18 04/07/2018 BMP, serum or plasm a chloride 105 mmol/ L 96-106 Not Available [facility] ([facility]) [address] [place], [address], 04/07/2018 17:11:23 04/06/20 18 04/07/2018 BMP, serum or plasm a carbon dioxide, total 25 mmol/ L Eff ectiv e April 11, 2018 Carbo n Dioxi de, Total refer ence inter saturnino will be gaming ing to: Age Male Femal e 0 days - 30 days 16 - 29 16 - 29 31 days - 1 year 15 - 25 15 - 25 2 years - 5 years 17 - 26 17 - 26 6 years - 12 years 19 - 27 19 - 27 >12 years 20 - 29 20 - 29 Not Available [facility] ([facility]) [address] [facility], [place], [address], 04/07/2018 17:11:23 04/06/20 18 04/07/2018 BMP, serum or plasm a anion gap 14.0 mmol/ L 10.0-1 8.0 Not Available [facility] ([facility]) [address] [facility], [place], [address], 04/07/2018 17:11:23 04/06/20 18 04/07/2018 lipid panel , serum cholesterol, total 103 mg/dL 100-19 9 Not Available [facility] ([facility]) [address] [place], [address], 04/07/2018 17:11:23 04/06/20 18 04/07/2018 lipid panel , serum HDL cholesterol 30 mg/dL >39 below low normal Not Available [facility] ([facility]) [address] [place], [address], 04/07/2018 17:11:23 04/06/20 18 04/07/2018 lipid panel , serum LDL/HDL ratio 1.6 ratio 0.0-3. 6 LDL/H DL Ratio Men Women 1/2 Avg.R isk 1.0 1.5 Avg.R isk 3.6 3.2 2X Avg.R isk 6.2 5.0 3X Avg.R isk 8.0 6.1 Not Available [facility] ([facility]) [address] [place], [address], 04/07/2018 17:11:23 04/06/20 18 04/07/2018 lipid panel , serum non-HDL cholesterol 73 mg/dL 0-129 Not Available [facility] ([facility]) [address] [place], [address], 04/07/2018 17:11:23 04/06/20 18 04/07/2018 lipid panel , serum triglyceride s 129 mg/dL 0-149 Not Available [facility] ([facility]) [address] [place], [address], 04/07/2018 17:11:23 04/06/20 18 04/07/2018 lipid panel , serum LDL cholesterol calc 47 mg/dL 0-99 Not Available [facility] ([facility]) [address] [place], [address], 04/07/2018 17:11:23 04/06/20 18 04/07/2018 lipid panel , serum LDL-P 729 nmol/ L <1000 Low < 1000 Moder ate 1000 - 1299 Borde rline -High 1300 - 1599 High 1600 - 2000 Very High > 2000 Not Available [facility] ([facility]) [address] [place], [address], 04/07/2018 17:11:23 04/06/20 18 04/07/2018 lipid panel , serum HDL-P (total) 25.8 umol/ L >=30.5 below low normal Not Available [facility] ([facility]) [address] [facility], [place], [address], 04/07/2018 17:11:23 04/06/20 18 04/07/2018 lipid panel , serum small LDL-P 557 nmol/ L <=527 above high normal Not Available [facility] ([facility]) [address] [facility], [place], [address], 04/07/2018 17:11:23 04/06/20 18 04/07/2018 lipid panel , serum LDL size 19.9 nm >20.5 ----- ----- ----- ----- ----- ----- ----- ----- ----- ----- ----- --- INTER PRETA TIVE INFOR MATIO N PARTI PANDA TU NTRAT ION AND SIZE <--Lo wer CVD Risk Highe r CVD Risk- -> LDL AND HDL PARTI CLES Perce ntile in Refer ence Popul ation HDL-P (tota l) High 75th 50th 25th Low >34.9 34.9 30.5 26.7 <26.7 Small LDL-P Low 25th 50th 75th High <117 117 527 839 >839 LDL Size <-Lar ge (Nohelia brandon A)-> <-Sma ll (Nohelia brandon B)-> 23.0 20.6 20.5 19.0 ----- ----- ----- ----- ----- ----- ----- ----- ----- ----- ----- --- Small LDL-P and LDL Size are assoc iated with CVD risk, but not after LDL-P is taken into accou nt. These assay s were devel oped and their perfo rmanc e leo cteri stics deter mined by [employer]an núñ[employer]. These assay s have not been clear ed by the [place] Food and Drug Admin istra tion. The clini eileen utili ty of these labor atory value s have not been fully estab brennan mcgrath. Not Available [facility] ([facility]) [address] [facility], [place], [address], 04/07/2018 17:11:23 04/06/20 18 04/07/2018 lipid panel , serum LP-IR score 72 <=45 above high normal INSUL IN RESIS TANCE MARKE R <--In sulin Sensi tive Insul in Resis tant- -> Perce ntile in Refer ence Popul ation Insul in Resis tance Score LP-IR Score Low 25th 50th 75th High <27 27 45 63 >63 LP-IR Score is inacc urate if patie nt is non-f astin g. The LP-IR score is a labor atory devel oped index that has been assoc iated with insul in resis tance and diabe alexx risk and shoul d be used as one compo nent of a physi osmany' s clini eileen asses sment . The LP-IR score liste d above has not been clear ed by the [place] Food and Drug Admin istra tion. Not Available [facility] ([facility]) [address] [facility], [place], [address], 04/07/2018 17:11:23 04/06/20 18 04/07/2018 lipid panel , serum nmr pdf image . Not Available [facility] ([facility]) [address] [facility], [place], [address], 04/07/2018 17:11:23 04/06/20 18 04/07/2018 lipid panel , serum comment: SENIOR WEB ARCHITECT Not Available [facility] ([facility]) [address] [facility], [place], [address], 04/07/2018 17:11:23 04/06/20 18 04/06/2018 HbA1c (hemo globi n A1c), blood hemoglobin A1C 7.5 % 4.8-5. 6 above high normal Pre-d iabet es: 5.7 - 6.4 Diabe alexx: >6.4 Glyce brett contr ol for adult s with diabe alexx: <7.0 Not Available [facility] ([facility]) [address] [facility] [place], [address], 04/07/2018 17:11:24 04/06/20 18 04/07/2018 micro album in, urine albumin, urine 17.2 ug/mL not estab. Not Available [facility] ([place] [facility]) [address] [facility] [place], [address], 04/07/2018 17:11:24 04/06/20 18 04/07/2018 diabe alexx patie nt educa tion pdf image . Not Available [facility] ([facility]) [address] [facility] [place], [address], 04/07/2018 17:11:25 04/14/20 18 04/15/2018 thyro id panel , serum TSH 2.530 uIU/m L 0.450- 4.500 Not Available [facility] ([place] [facility]) [address] [facility] [place], [address], 04/15/2018 09:19:35 04/14/20 18 04/15/2018 thyro id panel , serum thyroxine (T4) 6.8 ug/dL 4.5-12 .0 Not Available [facility] ([place] [facility]) [address] [facility] [place], [address], 04/15/2018 09:19:35 04/14/20 18 04/15/2018 thyro id panel , serum T3 uptake 27 % 24-39 Not Available [facility] ([place] [facility]) [address] [facility] [place], [address], 04/15/2018 09:19:35 04/14/20 18 04/15/2018 thyro id panel , serum free thyroxine index 1.8 1.2-4. 9 Not Available [facility] ([place] [facility]) [address] [facility] [place], [address], 04/15/2018 09:19:35 10/06/20 18 10/07/2018 lipid panel , serum cholesterol, total 126 mg/dL 100-19 9 Not Available [facility] ([facility]) [address] [place], [address], 10/07/2018 13:11:50 10/06/20 18 10/07/2018 lipid panel , serum triglyceride s 167 mg/dL 0-149 above high normal Not Available [facility] ([facility]) [address], [place], [address], 10/07/2018 13:11:50 10/06/20 18 10/07/2018 lipid panel , serum LDL chol. (direct) 76 mg/dL 0-99 Not Available [facility] ([facility]) [address] [facility], [place], [address], 10/07/2018 13:11:50 10/06/20 18 10/07/2018 lipid panel , serum HDL cholesterol 31 mg/dL >39 below low normal Not Available [facility] ([facility]) [address], [place], [address], 10/07/2018 13:11:50 10/06/20 18 10/07/2018 lipid panel , serum VLDL cholesterol eileen 33 mg/dL 5-40 Not Available [facility] ([facility]) [address] [facility], [place], [address], 10/07/2018 13:11:50 10/06/20 18 10/07/2018 lipid panel , serum LDL cholesterol calc 62 mg/dL 0-99 Not Available [facility] ([facility]) [address] [facility], [place], [address], 10/07/2018 13:11:50 10/06/20 18 10/07/2018 lipid panel , serum comment: SENIOR WEB ARCHITECT Not Available [facility] ([facility]) [address] [facility], [place], [address], 10/07/2018 13:11:50 10/06/20 18 10/07/2018 lipid panel , serum LDL/HDL ratio 2.0 ratio 0.0-3. 6 LDL/H DL Ratio Men Women 1/2 Avg.R isk 1.0 1.5 Avg.R isk 3.6 3.2 2X Avg.R isk 6.2 5.0 3X Avg.R isk 8.0 6.1 Not Available [facility] ([facility]) [address] [place], [address], 10/07/2018 13:11:50 10/06/20 18 10/07/2018 HbA1c (hemo globi n A1c), blood hemoglobin A1C 9.5 % 4.8-5. 6 above high normal Predi abete s: 5.7 - 6.4 Diabe alexx: >6.4 Glyce brett contr ol for adult s with diabe alexx: <7.0 Not Available [facility] ([facility]) [address] [place], [address], 10/07/2018 13:11:50 10/06/20 18 10/07/2018 diabe alexx patie nt educa tion pdf image . Not Available [facility] ([facility]) [address] [place], [address], 10/07/2018 13:11:51 07/06/20 17 XR, thora cic spine No observ ation record ed. [facility] Not Available 2016 10:02:12 07/15/20 17 07/15/2017 XR, cervi eileen spine No observ ation record ed. [facility] [address] [place], [address], 07/19/2017 10:02:12 07/15/20 17 07/15/2017 XR, foot No observ ation record ed. [facility] ([facility] [address] [place], [address], 07/19/2017 10:02:12 07/15/20 17 07/15/2017 XR, thora colum bar spine No observ ation record ed. [facility] [address] [place], [address], 07/19/2017 10:02:12 07/15/20 17 07/15/2017 XR, thora colum bar spine No observ ation record ed. [facility] ([facility]) [address] [place], [address], 07/19/2017 10:02:11 11/18/19 18 11/18/2017 US, liver No observ ation record ed. [facility] ([facility]) [address] [place], [address], 12/23/2017 12:08:48 Result Notes None recorded. Problems Name Problem SNOMED Code Status Onset Date Resolution Date Notes Provider Name and Address Organization Details Recorded Time Uncontrolle d type 2 diabetes mellitus 117899649 Active 2016 Nichole Munguia MD Attn: Audrey boles,[id number] [place], [address], [facility] 7 12:47:42 Medication therapy management recommendat ion declined by patient [id number] Active 2017 Nichole Munguia MD Attn: Audrey boles,[address] [place], [address], [facility] 8 12:32:59 Immunizatio n refused Active 2017 Nichole Munguia MD Attn: Audrey boles,[address] [place], [address], [facility] 8 12:33:00 Problem Notes None recorded. Procedures Surgical History Date Name Laterality Status Provider Name and Address Organization Details Recorded Time Tonsillectomy completed Angela lu MA [place] [facility] 07/02/2017 14:45:37 Imaging Results Imaging Date Name Status LastModified by Organization Details LastModified Time 07/06/2017 XR, thoracic spine completed [facility] Information not available 07/19/2017 10:02:12 07/15/2017 XR, cervical spine completed [facility] [address] [place], [address], 07/19/2017 10:02:12 07/15/2017 XR, foot completed [facility] ([facility]) [address] [place], [address], 07/19/2017 10:02:12 07/15/2017 XR, thoracolumbar spine completed [facility] [address] [place], [address], 07/19/2017 10:02:12 07/15/2017 XR, thoracolumbar spine completed [facility] ([facility]) [address] [place], [address], 07/19/2017 10:02:11 11/18/2017 US, liver completed [facility] ([facility]) [address] [place], [address], 12/23/2017 12:08:48 Procedure Notes None recorded. Medical Equipment None Reported. Allergies No known drug allergies Medications Name Sig Start Date Stop Date Status Note LastModified by Organization Details LastModified Time atorvasta tin 40 mg tablet TAKE 1 TABLET BY MOUTH EVERY DAY active Not Available Not Available No t Available Tamiflu 75 mg capsule Take 1 capsule twice a day by oral route as directed for 5 days. 04/14 completed Not Available Not Available Not Available Amaryl 1 mg tablet Take 1 tablet every day by oral route for 90 days. 2017 active Not Available Not Available Not Avai lable Kitara MediaTouch Ultra Test strips active Not Available Not Available Not Available metformin 1,000 mg tablet Take 1 tablet twice a day by oral route. 12/23 completed Not Available Not Available Not Available pseudoeph edrine 60 mg tablet Take 1 tablet every 6-8 hours by oral route as needed for 5 days. 04/14 completed Not Available Not Available Not Available metformin ER 500 mg tablet,ex tended release 24 hr TAKE 4 TABLETS BY MOUTH EVERY DAY DIRECTED active Not Available Not Available No t Available Sudafed 30 mg tablet 2 po every 6-8 hours 04/14 completed Discusse d with the shanikai at at 6:53 pm Not Available Not Available Not Available OneTouch Ultra2 Meter kit active Not Available Not Available No t Available OneTouch Delica Lancets 30 gauge TEST ONCE DAILY DIRECTED active Not Available Not Available No t Available OneTouch Ultra Blue Test Strip TEST ONCE DAILY DIRECTED 2018 active Not Available Not Available Not Avai lable Vitals Date Recorded Body height Body mass index (BMI) Body weight Body temperature Heart rate Oxygen saturation Oxygen saturation in Arterial blood by Pulse oximetry Systolic blood pressure Diastolic blood pressure Provider Name and Address Organization Details Last Updated DateTime 8 187.96 cm 32.6 kg/m2 390564. 46 g 98.6 [degF] 83 /min 98 % 98 % 146 mm[Hg] 82 mm[Hg] Angela Andrews MA [place] - [facility] 8 12:00:39 Date Recorded Body height Body mass index (BMI) Body weight Body temperature Heart rate Oxygen saturation Oxygen saturation in Arterial blood by Pulse oximetry Systolic blood pressure Diastolic blood pressure Provider Name and Address Organization Details Last Updated DateTime 8 187.96 cm 33.7 kg/m2 897702. 64 g 97.7 [degF] 72 /min 97 % 97 % 130 mm[Hg] 76 mm[Hg] Angela Andrews MA [place] - [facility] 8 12:09:05 Date Recorded Body height Body mass index (BMI) Body weight Body temperature Heart rate Oxygen saturation Oxygen saturation in Arterial blood by Pulse oximetry Systolic blood pressure Diastolic blood pressure Provider Name and Address Organization Details Last Updated DateTime 8 187.96 cm 33.5 kg/m2 091352. 89 g 98.1 [degF] 94 /min 98 % 98 % 124 mm[Hg] 76 mm[Hg] Angela Andrews MA [place] - [facility] 8 15:32:11 Date Recorded Body height Body mass index (BMI) Body weight Heart rate Body temperature Oxygen saturation Oxygen saturation in Arterial blood by Pulse oximetry Systolic blood pressure Diastolic blood pressure Provider Name and Address Organization Details Last Updated DateTime 7 187.96 cm 31.5 kg/m2 653983. 13 g 73 /min 98 [degF] 98 % 98 % 128 mm[Hg] 86 mm[Hg] Angela Andrews [facility] 7 09:56:04 Date Recorded Body height Body mass index (BMI) Body weight Heart rate Body temperature Oxygen saturation Oxygen saturation in Arterial blood by Pulse oximetry Systolic blood pressure Diastolic blood pressure Provider Name and Address Organization Details Last Updated DateTime 7 187.96 cm 32.8 kg/m2 982296. 49 g 63 /min 98 [degF] 98 % 98 % 110 mm[Hg] 76 mm[Hg] Angela Andrews MA [facility] 7 12:32:20 Social History Question Answer Notes LastModified by Organizat ion Details LastModified Time Tobacco Smoking Status Never Smoker Angela Andrews MA null, [facility] 07/02/2017 14:45:21 What Was The Date Of Your Most Recent Tobacco Screening? 10/12/2018 Information n ot available 05/25/2019 How Much Tobacco Do You Smoke? No Information not available 07/02/2017 How Many Years Have You Smoked Tobacco? 0 Information not available 07/02/2017 Sex: Unknown Functional Status None recorded. Mental Status None recorded. Family History Relationship Description Onset Age of this Age Resolved Age Notes LastModified by Organization Details LastModified Time Mother Hypertensive disorder [email or web address] Not available 2016 14:44:58 Mother Hypercholest erolemia hdoverma Not available 2016 14:45:04 Mother Osteoporosis hdoverma Not avail able 07/02/2017 14:45:13 Medical History Condition Response Coronary Artery Disease N Other N Atrial Fibrillation N High Blood Pressure N Kidney or Bladder Problems N Thyroid Problems N GI Problems N Depression N COPD N Blood Clots N Skin Problems N Anemia N Heart Attack (ND) N Anxiety Disorder N Diabetes N Muscle, Joint, or Bone Problems Y Seizures/Epilepsy N Acid Reflux (GERD) N Cancer N Stroke N Asthma N Allergies N High Cholesterol N Hepatitis N Liver Disease N Headaches N Heart Failure N Osteoporosis N Immunizations Vaccine Type Date Status Note Provider Nam e and Address Organization Details Recorded Time Tdap 11/03/2010 completed Nichole Munguia MD Attn: [employer] , [place], [address], [place] [facility] 07/02/2017 15:07:34 Past Encounters Encounter ID Performer Location Encounter Start Date Encounter Closed Date Diagnosis/Indication Diagnosis SNOMED-CT Code Diagnosis ICD10 Code Diagnosis Note [id number] [facility] [address] [place] [id number] 07/02/2017 14:35:15 07/02/2017 15:27:43 Adult health examination 215320580 Z00.01 Chronic back pain 907430 002 G89.29 He was seen by a chiropract or Pain in toe 780708190 M7 9.675 Immunization refused 275 847563 Z28.20 Chronic neck pain 354187 3762 107 M54.2 Lateral ep icondylitis of left humerus 8576807136 34849 M77.12 Overweight 074429488 E66 .3 Elevated blood-pressure reading without diagnosis of hypertension 907302052 R03.0 Low salt diet [id number] MD Miladis [facility]ett (Adult Med) [address] [place] [id number] 07/19/2017 09:45:19 07/19/2017 10:27:09 Uncontrolled type 2 diabetes mellitus 059982825 E11.65 Newly diagnosed, detailed discussion of the diagnosis and treatment Disorder o f lipid metabolism 325086167 E78.9 Immunization refused 275 940668 Z28.20 Osteoarthritis 113597988 M19.90 Increased liver function 53451926 R94.5 [id number] MD [facility]adis Moffett (Adult Med) [address] [place] [id number] 09/16/2017 12:25:40 09/16/2017 12:54:45 Uncontrolled type 2 diabetes mellitus 449603344 E11.65 His blood sugars are better.Dot ua eye exam was done a few weeks ago. Immunization refused 275 090675 Z28.20 Imaging re sult abnormal 605433253 R93.6 All his xray reports were discussed again. Disorder o f lipid metabolism 397418589 E78.9 Arthritis 6758030 M19.90 [id number] MD [facility]ett (Adult Med) [address] [place] [id number] 12/23/2017 11:54:34 12/23/2017 12:37:03 Adult health examination 294351221 Z00.01 Sore throat 892834673 J0 2.9 Influenza- like illness 82122378 B34.9 Upper resp iratory infection 63410395 J06.9 Uncontroll ed type 2 diabetes mellitus 980200348 E11.65 Disorder o f lipid metabolism 905186460 E78.9 [id number] Nichole Munguia MD [facility] (Adult Med) [address] [place] [id number] 04/14/2018 11:57:27 04/14/2018 12:35:22 Uncontrolled type 2 diabetes mellitus 770911873 E11.65 Disorder o f lipid metabolism 924851799 E78.9 Weight gain 6243908 R63. 5 Immunization refused 275 382370 Z28.20 Medication therapy management recommendation declined by patient 0047753120 107 Z53.20 [id number] MD Miladis Moffett (Adult Med) [address] [place] [id number] 10/12/2018 15:25:48 10/13/2018 09:29:26 Influenza vaccination declined 747642648 Z28.21 Uncontroll ed type 2 diabetes mellitus 884181821 E11.65 He has refused [place] a GLP-1-, I don't want to that Screening for malignant neoplasm of colon 722343919 Z12.11 Screening for malignant neoplasm of prostate 921376768 Z12.5 Disorder o f lipid metabolism 956544555 E78.9 Health Concerns Section Related Observation LastModified by Organization Detai ls LastModified Time None Recorded Concern Status LastModified by Organization Details LastModified Time None Recorded Advance Directives Directive None Recorded Payers Encounter Date Sequence Insurance Name Policy Number Policy Kaminski Covered Member ID Kaminski Member ID Guarantor Name 07/19/2017 1 [facility] (MEDICAID HMO) Vince Braswell [id number] Vince Braswell 09/16/2017 1 [facility] (MEDICAID HMO) Vince Braswell [id number] Vince Brsawell 12/23/2017 1 [facility] (MEDICAID HMO) Vince Braswell [id number] Vince Braswell 04/14/2018 1 [facility] (MEDICAID HMO) Vince Braswell [id number] Vince Braswell 10/12/2018 1 [facility] (MEDICAID HMO) Vince Braswell [id number] Vince Braswell Notes Date Note Type Note Provider Name and Address Organization Details Recorded Time 09/16/2017 text/html Diabetes F/URepo rted bypatient.Review finger sticks:fastin-160 Labs:last A1C result: 13.4 Context:home blood sugar range high;missing doses of medication;side effects from medications Associated Symptoms:no weight gain; no weight loss; no dizziness; no sweats; no headaches; no confusion; no increased thirst; no increased appetite; no increased urination; no blurred vision; no numbness of feet; no calluses on feet Diarrhea Mr. Braswell returns, he reports diarrhea from the Metformin, he has cut the dose in half and his stools are now soft. Nichole Munguia MD Attn: [address] [place], [address], [facility] 09/16/2017 13:55:39 12/23/2017 text/html Upper Respirator y SymptomsReported bypatient.[facility] Severity:moderate Duration:3 days Context:sick contact Modifying Factors:OTC medication Associated Symptoms:no shortness of breath; no wheezing; no change in number of pillows needed to sleep at night; no sweats; no fever; no significant weight gain; no significant weight loss; no morning cough; no sore throat; no vomiting; no diarrhea; no rash; no nausea;yellow-green, thick sputum;green sputum Nichole Munguia MD Attn: [address] [place], [address], [facility] 12/23/2017 20:20:22 04/14/2018 text/html Diabetes F/URepo rted bypatient.Review finger sticks:fastin Labs:last A1C result: 7.5 Context:seeing eye doctor regularly; checking feet regularly;home blood sugar range high Associated Symptoms:no weight gain; no weight loss; no dizziness; no sweats; no headaches; no confusion; no increased thirst; no increased appetite; no increased urination; no blurred vision; no numbness of feet; no calluses on feet Nichole Munguia MD Attn: [address] [place], [address], [facility] 04/14/2018 12:35:20 10/12/2018 text/html Diabetes F/URepo rted bypatient.Review finger sticks:fastin Labs:last A1C result: 9.5 Context:not missing doses of medications; no side effects from medications;home blood sugar range high Associated Symptoms:no weight gain; no weight loss; no dizziness; no sweats; no headaches; no confusion; no increased thirst; no increased appetite; no increased urination; no blurred vision; no numbness of feet; no calluses on feet Nichole Munguia MD Attn: [address] [place], [address], [facility] 10/12/2018 19:19:38
--- NOTE | 2025-01-13 14:08 | ED_ITS ---
HPI - General Adult General Chief complaint: Skin/Abscess/Foreign Body Stated complaint: bumps on back of neck Time Seen by Provider: 01/13/25 12:56 History of Present Illness HPI narrative: Patient with about a 1 year history of painful bumps on the back of his scalp. Patient cut his own hair and uses a clippers without a guard to do this. Says sometimes he is able to squeeze the bumps again a small amount of pus out of them. Over the past 2-3 days however the area with the bumps on the nape of his neck has gotten red, hard, painful. He is concerned that he has an infection. He denies any fever, chills, nausea, vomiting. Related Data Allergies Allergy/AdvReac Type Severity Reaction Status Date / Time No Known Allergies Allergy Verified 01/13/25 13:37 Exam 2 Narrative: The nape of the patient's neck just above the hairline shows numerous indurated nodules with 1 approximate 3 cm x 4 cm area of induration. equivocal fluctuance. Tender on exam. No other skin lesions noted. Risks, benefits and alternatives of the procedure discussed with the patient. Benefits: adequate healing and recover. Risks: pain, bleeding, infection. Alternative: observation without procedure, though this in not recommended in this case. Patient voiced understanding and agrees to proceed with procedure. Brief time out performed: confirmed correct patient, procedure, and site. The area was cleaned with an alcohol prep and injected with approximately 2cc of 2% lidocaine without epinephrine which raised an appropriate wheel in the skin. Adequate numbing ensured prior to start of procedure. The abscess was cleaned using an appropriate solution (chlorhexidine or iodine). The point of maximal fluctuance was incised using an 11 blade scalpel. Approximately 1 ccs of purulent material was easily expressed from the abscess. The abscess was explored using the handle of a cotton tip applicator to break up an loculations. Packing not indicated in this case. Dressed with 4x4 gauze and tape. Patient given appropriate wound care instructions and will be followed up by wound care. Course Vital Signs Vital signs: Vital Signs Temperature 36.5 C 01/13/25 12:52 Pulse Rate 86 01/13/25 12:52 Respiratory Rate 18 01/13/25 12:52 Blood Pressure 171/95 H 01/13/25 12:52 Pulse Oximetry 99 01/13/25 12:52 Oxygen Delivery Room Air 01/13/25 12:52 Temperature 36.5 C 01/13/25 12:52 Pulse Rate 86 01/13/25 12:52 Respiratory Rate 18 01/13/25 12:52 Blood Pressure 171/95 H 01/13/25 12:52 Pulse Oximetry 99 01/13/25 12:52 Oxygen Delivery Room Air 01/13/25 12:52 Medical Decision Making Vital Signs Vital Signs: Vital Signs Temperature 36.5 C 01/13/25 12:52 Pulse Rate 86 01/13/25 12:52 Respiratory Rate 18 01/13/25 12:52 Blood Pressure 171/95 H 01/13/25 12:52 Pulse Oximetry 99 01/13/25 12:52 Oxygen Delivery Room Air 01/13/25 12:52 Temperature 36.5 C 01/13/25 12:52 Pulse Rate 86 01/13/25 12:52 Respiratory Rate 18 01/13/25 12:52 Blood Pressure 171/95 H 01/13/25 12:52 Pulse Oximetry 99 01/13/25 12:52 Oxygen Delivery Room Air 01/13/25 12:52 Discharge Plan Discharge Clinical Impression: Abscess of skin or subcutaneous tissue, Cellulitis Patient Disposition: Home, Self-Care Condition: Stable Instructions: Antibiotic Form, Cellulitis (ED), Abscess (ED) Additional Instructions: You have an infection of the skin of the back of your neck. Based only told me about having bumps on the back your head for the past year I think you also have something called chronic folliculitis. Sometimes this chronic condition can become inflamed and infected and form an abscess like what is happening with you now. Today we were able to drain a small amount of pus out of the area. I believe this infection is early in its formation though and may continue to make pus over the next several days. I am starting you on an antibiotic to help tamped down the infection. I recommend you follow-up with your primary care doctor in the next 7 days. your doctor can monitor the infection but also work with you to treat the chronic folliculitis. Patient given strict return precautions to alert [place] or nursing staff for signs and symptoms or worsening infection including spreading redness, new swelling, purulent drainage, fever, chills, inability to tolerate PO, difficulty breathing, too sick to get out of bed. He can also return to the emergency department if you feel that pus has reaccumulated in your neck it needs to be drained again. Patient Language: French Prescriptions: New sulfamethoxazole-trimethoprim [Bactrim DS] 800-160 mg tablet 1 tablet PO Q12H Qty: 10 0RF Follow-up/Referrals: UNKNOWN,DOCTOR [Primary Care Provider] - Time of Disposition: 14:17
[2025-01-13 14:25] VITALS: BP 146/91; PULSE 77; RESP 16; TEMP 36.6; O2SAT 99
== END 2025-01-13 14:25 | disposition home or self-care (01) ==
PROVIDERS: Emergency Provider Family Medicine
DX: L02.811 Cutaneous abscess of head [any part, except face] (principal); L03.811 Cellulitis of head [any part, except face]
CPT/HCPCS: 10060; 99283; J2004